=== PATIENT | female | born 1995 | race Caucasian/White ===

== ENCOUNTER 2017-08-13 21:56 | Emergency (ER) | payer SELFPAY ==
[2017-08-13 22:13] VITALS: BMI 22.6
[2017-08-13 22:17] VITALS: BP 132/74; RESP 18; TEMP 98.1; O2SAT 99
[2017-08-13 22:34] LABS: PH,URINE 7.5 (4.7-8.0); URINE BILIRUBIN NEGATIVE (NEGATIVE); URINE BLOOD NEGATIVE (NEGATIVE); URINE GLUCOSE (UA) NEGATIVE (NEGATIVE); URINE KETONE NEGATIVE (NEGATIVE); URINE LEUKOCYTE ESTERASE NEGATIVE Leu/uL (NEGATIVE); URINE PROTEIN NEGATIVE mg/dL (<30 mg/dL); URINE UROBILINOGEN 0.2 E.U./dL (<1 E.U./dL)
[2017-08-13 22:37] LABS: URINE APPEARANCE CLEAR (CLEAR); URINE COLOR YELLOW (YELLOW)
[2017-08-13] MEDS ORDERED: Sodium Chloride 0.9% 1,000 ML IV STA (22:42)
[2017-08-13 23:21] LABS: BASO # 0.02 K/mm3 (0.0-2.0); BASO % 0.2 % (0.0-3.0); EOS % 0.4 % (1.5-5.0); GRAN # 5.1 (1.4-6.5); GRAN % 63.3 % (50.0-68.0); HEMATOCRIT 39.9 % (36.0-48.0); LYMPH # 2.3 (1.2-3.4); LYMPH % 28.1 % (22.0-35.0); MEAN CELL VOLUME 97.3 fl (80.0-105.0); MEAN CORPUSCULAR HEMOGLOBIN 33.9 pg (25.0-35.0); MEAN CORPUSCULAR HGB CONC 34.8 g/dl (31.0-37.0); MEAN PLATELET VOLUME 10.6 fl (7.0-11.0); MONO # 0.6 (0.1-0.6); RED CELL DISTRIBUTION WIDTH 13.6 % (11.5-14.5); WHITE BLOOD COUNT 8.1 10^3/ul (4.5-11.0)
--- NOTE | 2017-08-13 23:27 | ED PDOC ---
Arrival/HPI - General Chief Complaint: GI Problem Time Seen by Provider: 08/13/17 22:13 Historian: Patient - History of Present Illness Narrative History of Present Illness (Text): 08/13/17 23:23 22yr old female presents today with nausea and 2 episodes of vomiting today after eating [employer]. pt states she has been having issues with eating since october. pt states every few days she will vomit her food. pt states sometimes it depends on what she is eating. pt states she has a harder time digesting greasy foods. pt presented today because she was feeling weaker than normal after vomiting today. denies abdominal pain. no urinary symptoms. states she vomited twice and had 1 episode of diarrhea. denies fever/chills. no other complaints. Time/Duration: Other (8PM) Symptom Course: Resolved Past Medical History - Provider Review Nursing Documentation Reviewed: Yes - Travel History Have you recently traveled outside [place] w/in the past 3 mons?: No - Tetanus Immunization Tetanus Immunization: Unknown - Past Medical History Past Medical History: No Previous - Psychiatric Hx Substance Use: No - Past Surgical History Past Surgical History: No Previous - Suicidal Assessment Feels Threatened In Home Enviroment: No Family/Social History - Physician Review Nursing Documentation Reviewed: Yes Family/Social History: Unknown Family HX Smoking Status: Never Smoked Hx Alcohol Use: No Hx Substance Use: No Hx Substance Use Treatment: No Allergies/Home Meds Allergies/Adverse Reactions: Allergies No Known Allergies Allergy (Verified 10/10/14 22:39) Home Medications: Home Meds Medication Instructions Recorded Confirmed No Known Home Med 08/13/17 08/13/17 Review of Systems - Review of Systems Constitutional: absent: Fatigue, Fevers Respiratory: absent: SOB, Cough Cardiovascular: absent: Chest Pain, Palpitations Gastrointestinal: Diarrhea, Nausea, Vomiting. absent: Abdominal Pain Genitourinary Female: absent: Dysuria, Frequency Musculoskeletal: absent: Arthralgias, Back Pain, Neck Pain Skin: absent: Rash, Pruritis Neurological: absent: Headache Psychiatric: absent: Anxiety, Depression Physical Exam Vital Signs Reviewed: Yes Vital Signs Temp Pulse Resp BP Pulse Ox 08/13/17 22:13 98.1 F 84 18 132/74 99 Temperature: Afebrile Blood Pressure: Normal Pulse: Regular Respiratory Rate: Normal Appearance: Positive for: Well-Appearing, Non-Toxic, Comfortable Pain Distress: None Mental Status: Positive for: Alert and Oriented X 3 - Systems Exam Head: Present: Atraumatic Mouth: Present: Moist Mucous Membranes Neck: Present: Normal Range of Motion Respiratory/Chest: Present: Clear to Auscultation, Good Air Exchange. No: Respiratory Distress, Accessory Muscle Use Cardiovascular: Present: Regular Rate and Rhythm, Normal S1, S2. No: Murmurs Abdomen: Present: Normal Bowel Sounds. No: Tenderness, Distention, Peritoneal Signs, Rebound, Guarding Back: Present: Normal Inspection Neurological: Present: GCS=15 Skin: Present: Warm, Dry, Normal Color. No: Rashes Psychiatric: Present: Alert, Oriented x 3 Medical Decision Making ED Course and Treatment: 08/13/17 23:26 22yr old female with N/v/d since 8pm today. hx of vomiting after greasy meals since october. cbc wnl cmp wnl lipase:wnl ua; wnl NS iv bolus given zofran given for nausea 08/13/17 23:50 pt reassessment; pt non toxic well appearing. no distress. stable vitals. resting comfortably in er. abdomen soft non tender, non distended; pt denies any pain. states nausea has resolved. discussed all results with patient in depth; advised f/u with PMD and GI doctor within the next 2 days. advised immediate return if symptoms worsen,persist or if new symptoms develop. pt verbalized understanding of D/c instructions and need for immediate f/u impression; nausea/vomiting, diarrhea increase fluids BRAT diet; Bananas, rice, apples, toast. follow up with the primary care physician within the next 2 days follow up with the GI doctor within the next 2 days. return immediately if symptoms worsen,persist or if new symptoms develop. - Lab Interpretations Lab Results: 08/13/17 22:55 08/13/17 22:55 Lab Results 08/13/17 22:55: WBC 8.1, RBC 4.10, Hgb 13.9, Hct 39.9, MCV 97.3, MCH 33.9, MCHC 34.8, RDW 13.6, Plt Count 268, MPV 10.6, Gran % 63.3, Lymph % (Auto) 28.1, [place] % (Auto) 8.0 H, Eos % (Auto) 0.4 L, Baso % (Auto) 0.2, Gran # 5.10, Lymph # 2.3 , [place] # 0.6, Eos # 0.0, Baso # 0.02 08/13/17 22:55: Sodium 144, Potassium 3.9, Chloride 105, Carbon Dioxide 25, Anion Gap 18, BUN 12, Creatinine 0.6 L, Est GFR ( Amer) > 60, Est GFR ( Non-Af Amer) > 60, Random Glucose 103, Calcium 9.9, Total Bilirubin 0.4, AST 26 , ALT 24, Alkaline Phosphatase 50, Total Protein 8.5 H, Albumin 5.2 H, Globulin 3.3, Albumin/Globulin Ratio 1.6, Lipase 37 08/13/17 22:10: Urine Color Yellow, Urine Appearance Clear, Urine pH 7.5, Ur Specific [place] 1.010, Urine Protein Negative, Urine Glucose (UA) Negative, Urine Ketones Negative, Urine Blood Negative, Urine Nitrate Negative, Urine Bilirubin Negative, Urine Urobilinogen 0.2, Ur Leukocyte Esterase Negative - Medication Orders Current Medication Orders: Discontinued Medications Sodium Chloride (Sodium Chloride 0.9%) 1,000 mls @ 999 mls/hr IV .Q1H1M STA Stop: 08/13/17 23:42 Last Admin: 08/13/17 22:56 Dose: 999 mls/hr eMAR Start Stop Document 08/13/17 22:56 AUGUSTINE (Rec: 08/13/17 22:58 AUGUSTINE [id number]) Intravenous Solution Start Date 08/13/17 Start Time 22:58 End Date 08/13/17 End time 23:55 Total Infusion Time 57 Ondansetron HCl (Zofran Inj) 4 mg IVP STAT STA Stop: 08/13/17 22:43 Last Admin: 08/13/17 22:58 Dose: 4 mg IVP Administration Document 08/13/17 22:58 AUGUSTINE (Rec: 08/13/17 22:58 AUGUSTINE [id number]) Charges for Administration # of IVP Administrations 1 Disposition/Present on Arrival - Present on Arrival Any Indicators Present on Arrival: No History of DVT/PE: No History of Uncontrolled Diabetes: No Urinary Catheter: No History of Decub. Ulcer: No History Surgical Site Infection Following: None - Disposition Have Diagnosis and Disposition been Completed?: Yes Diagnosis: Nausea & vomiting, Diarrhea Disposition: HOME/ ROUTINE Disposition Time: 23:54 Isolation: Special Contact Patient Plan: Discharge Patient Problems: Current Active Problems Problem Status Onset Diarrhea Acute Nausea & vomiting Acute Condition: GOOD Discharge Instructions (ExitCare): Acute Nausea and Vomiting (ED), Acute Diarrhea (ED) Additional Instructions: increase fluids BRAT diet; Bananas, rice, apples, toast. follow up with the primary care physician within the next 2 days follow up with the GI doctor within the next 2 days. return immediately if symptoms worsen,persist or if new symptoms develop. Referrals: Johnie Diaz MD [Staff Provider] - Follow up with primary Allan Arnold MD [Staff Provider] - Follow up with primary [facility] [place] - Follow up with primary Forms: [facility] (Jamaican), WORK NOTE
[2017-08-13 23:31] LABS: ALB/GLOB RATIO 1.6 (1.1-1.8); ALKALINE PHOSPHATASE 50 U/L (38-126); ALT/SGPT 24 U/L (7-56); AST/SGOT 26 U/L (14-36); BILIRUBIN,TOTAL 0.4 mg/dL (0.2-1.3); BLOOD UREA NITROGEN 12 mg/dL (7-21); CALCIUM 9.9 mg/dL (8.4-10.5); CARBON DIOXIDE 25 mmol/L (21-33); CHLORIDE 105 mmol/L (98-107); GFR AFRICAN-AMERICAN > 60; GLUCOSE,RANDOM 103 mg/dL (70-110); LIPASE 37 U/L (23-300); POTASSIUM 3.9 mmol/L (3.6-5.0); SODIUM 144 mmol/L (132-148); TOTAL PROTEIN 8.5 g/dL (5.8-8.3)
[2017-08-14 00:08] VITALS: PULSE 78
== END 2017-08-14 00:08 | disposition home or self-care (01) ==
LOC: ED 21:56
DX: R11.2 Nausea with vomiting, unspecified (principal); R19.7 Diarrhea, unspecified
CPT/HCPCS: 80053; 81003; 83690; 85025; 96361; 96374; 99283; J2405; J7040